=== PATIENT | female | born 1935 | race Asian ===

== ENCOUNTER 2016-12-28 07:30 | Inpatient (IN) | payer MEDICARE, OTHER ==
[~2016-12-28] VITALS: Ht 149.9 cm; Wt 59.1 kg
[2017-03-15 14:30] LABS: BASOPHILS # (AUTO) 0.03 K/uL (0.00-0.20); BASOPHILS % (AUTO) 0.4 % (0.0-2.0); EOSINOPHILS # (AUTO) 0.35 K/uL (0.00-0.70); EOSINOPHILS % (AUTO) 5.53 % (1.0-6.0); HEMATOCRIT 34.8 % (36-46); HEMOGLOBIN 11.7 g/dL (12.0-16.0); LYMPHOCYTES # (AUTO) 1.6 K/uL (1.0-4.8); LYMPHOCYTES % (AUTO) 25.7 % (22.0-44.0); MEAN CORPUSCULAR HEMOGLOBIN 32.3 pg (26.0-34.0); MEAN CORPUSCULAR HGB CONC 33.7 G/dL (31.0-37.0); MEAN CORPUSCULAR VOLUME 96 fL (80-100); MONOCYTES # (AUTO) 0.5 K/uL (0.1-1.0); MONOCYTES % (AUTO) 7.8 % (2.0-9.0); NEUTROPHILS # (AUTO) 3.9 K/uL (1.8-7.7); NEUTROPHILS % (AUTO) 60.6 % (40.0-70.0); PLATELET COUNT (AUTO) 209 K/uL (150-450); RED BLOOD CELL COUNT(AUTO) 3.62 MIL/uL (4.00-5.20); RED CELL DISTRIBUTION WIDTH 13.7 % (11.5-14.5); WHITE BLOOD COUNT (AUTO) 6.4 K/uL (4.5-11.0)
[2017-03-15 14:43] LABS: CALCIUM, TOTAL 10.2 mg/dL (8.8-10.5); CREATININE 1.01 mg/dL (0.60-1.30)
[2017-03-15 14:44] LABS: PROTHROMBIN TIME 10.1 SEC (9.4-11.6)
[2017-03-15 14:46] LABS: BILIRUBIN,TOTAL 0.8 mg/dL (0.1-1.0); TOTAL PROTEIN, SERUM 7.6 g/dL (6.4-8.2)
[2017-03-18] MEDS ORDERED: ACET-784 PO (16:38)
[2017-03-18] MEDS ORDERED: AMLO-511 PO (16:38)
[2017-03-18] MEDS ORDERED: ISOS5TAB5 PO (16:38)
[2017-03-18] MEDS ORDERED: CALC-51 PO (16:38)
[2017-03-18] MEDS ORDERED: SIMV-260 PO (16:38)
[2017-03-18] MEDS ORDERED: METH2.5 PO (16:38)
[2017-03-18] MEDS ORDERED: ASPI81 PO (16:38)
[2017-03-18] MEDS ORDERED: TELM40 PO (16:38)
[2017-03-18] MEDS ORDERED: CARV3 PO (16:38)
[2017-03-18] MEDS ORDERED: VITAD400 PO (16:38)
[2017-03-18] MEDS ORDERED: LORA1TAB3 PO (16:38)
[2017-03-21] MEDS ORDERED: 0.9% SODIUM CHLORIDE 10 ML VIAL IVP ONE (05:14)
[2017-03-21] MEDS ORDERED: ONDANSETRON HCL 4 MG/2 ML VIAL IVP ONE (05:14)
[2017-03-21] MEDS ORDERED: MORPHINE SULFATE/PF 0.5 MG/ML 10 ML AMP IVP ONE (05:14)
[2017-03-21] MEDS ORDERED: PHENYLEPHRINE HCL 10 MG/ML VIAL IVP ONE (05:14)
[2017-03-21] MEDS ORDERED: KETAMINE HCL 50 MG/ML 10 ML VIAL IVP ONE (05:14)
[2017-03-21] MEDS ORDERED: MIDAZOLAM HCL 2 MG/2 ML VIAL IVP ONE (05:14)
[2017-03-21] MEDS ORDERED: EPHEDrine SULFATE 50 MG/ML VIAL IM ONE (05:14)
[2017-03-21] MEDS ORDERED: PROPOFOL 1% 20 ML VIAL IVP ONE (05:14)
[2017-03-21] MEDS ORDERED: FentaNYL CITRATE-PF 100 MCG/2 ML VIAL IVP ONE (05:14)
[2017-03-21] MEDS ORDERED: LIDOCAINE HCL/PF 2% 5 ML VIAL IM ONE (05:14)
[2017-03-21] MEDS ORDERED: CeFAZolin 2 GM/DEXTROSE 50 ML IV ONE ×2 (06:00→06:13)
[2017-03-21] MEDS ORDERED: RINGERS SOLUTION,LACTATED 1,000 ML IV ONE ×3 (06:11→07:15)
[2017-03-21] MEDS ORDERED: BUPIVACAINE HCL/PF 0.25% 30 ML VIAL ONE (06:24)
[2017-03-21] MEDS ORDERED: BUPIVACAINE HCL/PF 0.5% 30 ML VIAL ONE ×2 (06:53→07:11)
[2017-03-21] MEDS ORDERED: SODIUM CHLORIDE 0.9% 0 ML IV ONE (06:53)
[2017-03-21] MEDS ORDERED: SODIUM CHLORIDE 0.9% 30 ML ONE (06:53)
[2017-03-21] MEDS ORDERED: VANCOMYCIN HCL 1 GM/VIAL ONE (06:54)
[2017-03-21] MEDS ORDERED: SODIUM CL IRRIG SOLN BAG 3,000 ML IRRIG ONE (06:54)
[2017-03-21] MEDS ORDERED: TRANEXAMIC ACID 1,000 MG in DEXTROSE 5%-WATER 50 ML IV ONE (07:15)
[2017-03-21] MEDS ORDERED: BUPIVACAINE LIPOSOME/PF 1.3%-13.3MG/ML SUSPENSION 20 ML VIAL INJ ONE (08:00)
[2017-03-21] MEDS: ACETAMINOPHEN 1000 MG/ISO-OSM 100 ML IV ONE ×2 (08:00→10:26)
[2017-03-21] MEDS ORDERED: MEPERIDINE-PF 25 MG/ML SYRINGE IVP PRN (09:30)
[2017-03-21] MEDS ORDERED: FentaNYL CITRATE-PF 100 MCG/2 ML VIAL IVP PRN (09:30)
[2017-03-21] MEDS ORDERED: HYDROmorphone 2 MG/ML SYRINGE IVP PRN (09:30)
[2017-03-21] MEDS ORDERED: ACETAMINOPHEN 1000 MG/ISO-OSM 100 ML IV ONE (10:23)
[2017-03-21] MEDS: ACETAMINOPHEN 1000 MG/ISO-OSM 100 ML IV SCH ×3 (10:26→22:07)
[2017-03-21] MEDS: CeFAZolin 1 GM/DEXTROSE 50 ML IV SCH ×2 (10:32→17:48)
[2017-03-21] MEDS ORDERED: CeFAZolin 1 GM/DEXTROSE 50 ML IV ONE (10:32)
[2017-03-21 11:30] VITALS: BP 137/69
[2017-03-21] MEDS ORDERED: ONDANSETRON HCL 4 MG/2 ML VIAL IVP PRN (11:45)
[2017-03-21] MEDS ORDERED: ZOLPIDEM TARTRATE 5 MG TABLET PO PRN (11:45)
[2017-03-21] MEDS ORDERED: ISOS10TA16 PO (12:05)
[2017-03-21 15:30] VITALS: BP 142/68
[2017-03-21 19:43] VITALS: BP 103/54
[2017-03-21] MEDS: OXYGEN THERAPY IH SCH (20:00)
[2017-03-21] MEDS: CARVEDILOL 3.125 MG TABLET PO SCH (21:00)
[2017-03-21 23:41] VITALS: BP 106/52
[2017-03-22] MEDS: CeFAZolin 1 GM/DEXTROSE 50 ML IV SCH (01:46)
[2017-03-22] MEDS: ACETAMINOPHEN 1000 MG/ISO-OSM 100 ML IV SCH (03:50)
[2017-03-22 03:55] VITALS: BP 120/59
[2017-03-22] MEDS: OXYGEN THERAPY IH SCH ×2 (08:00→20:00)
[2017-03-22 08:19] VITALS: BP 142/65
[2017-03-22] MEDS ORDERED: TELMISARTAN 40 MG TABLET PO SCH (09:00)
[2017-03-22] MEDS: CHOLECALCIFEROL (VIT D3) 400 UNITS TABLET PO SCH (09:06)
[2017-03-22] MEDS: CARVEDILOL 3.125 MG TABLET PO SCH ×2 (09:06→20:56)
[2017-03-22] MEDS: ISOSORBIDE DINITRATE 10 MG TABLET PO SCH ×2 (09:07→20:56)
[2017-03-22] MEDS: ENOXAPARIN SODIUM 30 MG/0.3 ML PF SYRINGE SQ SCH (09:10)
[2017-03-22] MEDS: CYCLOBENZAPRINE HCL 10 MG TABLET PO PRN (11:12)
[2017-03-22 11:26] VITALS: BP 121/56
[2017-03-22] MEDS: HYDROmorphone 2 MG/ML SYRINGE IVP PRN (12:10)
[2017-03-22 16:00] VITALS: BP 150/75
[2017-03-22] MEDS: OxyCODONE HCL/ACETAMINOPHEN 5-325 MG TABLET PO PRN (16:15)
[2017-03-22 19:58] VITALS: BP 146/67
[2017-03-22] MEDS: TELMISARTAN 40 MG TABLET PO SCH (21:00)
[2017-03-22 23:56] VITALS: BP 132/59
[2017-03-23] MEDS: HYDROmorphone 2 MG/ML SYRINGE IVP PRN ×2 (00:30→10:39)
[2017-03-23 04:31] VITALS: BP 126/83
[2017-03-23 06:20] LABS: BASOPHILS # (AUTO) 0.02 K/uL (0.00-0.20); BASOPHILS % (AUTO) 0.2 % (0.0-2.0); EOSINOPHILS # (AUTO) 0.08 K/uL (0.00-0.70); HEMATOCRIT 26.6 % (36-46); HEMOGLOBIN 8.8 g/dL (12.0-16.0); LYMPHOCYTES % (AUTO) 10.8 % (22.0-44.0); MEAN CORPUSCULAR HEMOGLOBIN 32.3 pg (26.0-34.0); MEAN CORPUSCULAR HGB CONC 33.3 G/dL (31.0-37.0); MEAN CORPUSCULAR VOLUME 97 fL (80-100); MONOCYTES # (AUTO) 1.3 K/uL (0.1-1.0); MONOCYTES % (AUTO) 13.9 % (2.0-9.0); NEUTROPHILS # (AUTO) 7.2 K/uL (1.8-7.7); NEUTROPHILS % (AUTO) 74.4 % (40.0-70.0); PLATELET COUNT (AUTO) 134 K/uL (150-450); RED BLOOD CELL COUNT(AUTO) 2.74 MIL/uL (4.00-5.20); RED CELL DISTRIBUTION WIDTH 14.1 % (11.5-14.5); WHITE BLOOD COUNT (AUTO) 9.7 K/uL (4.5-11.0)
[2017-03-23 06:35] LABS: ALBUMIN 2.7 g/dL (3.4-5.0); BILIRUBIN,TOTAL 0.8 mg/dL (0.1-1.0); CALCIUM, TOTAL 8.8 mg/dL (8.8-10.5); CREATININE 1.07 mg/dL (0.60-1.30); POTASSIUM 3.9 mmol/L (3.5-5.1); TOTAL PROTEIN, SERUM 6.1 g/dL (6.4-8.2)
[2017-03-23 07:30] VITALS: BP 123/62
[2017-03-23] MEDS: ISOSORBIDE DINITRATE 10 MG TABLET PO SCH ×2 (08:28→20:58)
[2017-03-23] MEDS: CHOLECALCIFEROL (VIT D3) 400 UNITS TABLET PO SCH (08:28)
[2017-03-23] MEDS: ENOXAPARIN SODIUM 30 MG/0.3 ML PF SYRINGE SQ SCH (08:28)
[2017-03-23] MEDS: CARVEDILOL 3.125 MG TABLET PO SCH ×2 (08:28→20:57)
[2017-03-23] MEDS: TELMISARTAN 40 MG TABLET PO SCH ×2 (08:29→20:57)
[2017-03-23] MEDS ORDERED: EPOETIN ALFA 10,000 UNITS/ML VIAL SQ ONE (11:30)
[2017-03-23 12:00] VITALS: BP 120/47
[2017-03-23] MEDS: OxyCODONE HCL/ACETAMINOPHEN 5-325 MG TABLET PO PRN ×2 (14:15→18:20)
[2017-03-23 15:30] VITALS: BP 106/52
[2017-03-23] MEDS: OXYGEN THERAPY IH SCH (20:00)
[2017-03-23 20:52] VITALS: BP 100/42
[2017-03-23] MEDS: CYCLOBENZAPRINE HCL 10 MG TABLET PO PRN (20:58)
[2017-03-24 00:08] VITALS: BP 100/44
[2017-03-24] MEDS: OxyCODONE HCL/ACETAMINOPHEN 5-325 MG TABLET PO PRN ×2 (01:01→08:26)
[2017-03-24 04:00] VITALS: BP 92/42
[2017-03-24 07:40] VITALS: BP 121/58
[2017-03-24] MEDS: OXYGEN THERAPY IH SCH (08:00)
[2017-03-24] MEDS: ENOXAPARIN SODIUM 30 MG/0.3 ML PF SYRINGE SQ SCH (08:25)
[2017-03-24] MEDS: CARVEDILOL 3.125 MG TABLET PO SCH (08:26)
[2017-03-24] MEDS: CHOLECALCIFEROL (VIT D3) 400 UNITS TABLET PO SCH (08:26)
[2017-03-24] MEDS: ISOSORBIDE DINITRATE 10 MG TABLET PO SCH (08:26)
[2017-03-24] MEDS: TELMISARTAN 40 MG TABLET PO SCH (08:26)
[2017-03-24] MEDS ORDERED: METHOTREXATE SODIUM 2.5 MG TABLET PO SCH ×2 (09:00)
[2017-03-24] MEDS ORDERED: CALCIUM OYSTER SHELL 500 MG TABLET PO SCH (09:00)
[2017-03-24] MEDS: CYCLOBENZAPRINE HCL 10 MG TABLET PO PRN (10:25)
[2017-03-28] MEDS ORDERED: SIMVASTATIN 20 MG TABLET PO SCH (21:00)
== END 2017-03-24 11:30 | DRG 470 ==
LOC: 4E 03-21 05:41
PROVIDERS: ADMIT Orthopaedic Surgery; ATTEND Orthopaedic Surgery
PROC: 0SRC0J9 Replacement of Right Knee Joint with Synthetic Substitute, Cemented, Open Approach (ICD-10-PCS; principal; 2017-03-21 07:30)
DX: M17.11 Unilateral primary osteoarthritis, right knee (principal); D62 Acute posthemorrhagic anemia; M06.9 Rheumatoid arthritis, unspecified; M81.0 Age-related osteoporosis without current pathological fracture; I10 Essential (primary) hypertension; R79.89 Other specified abnormal findings of blood chemistry; E78.5 Hyperlipidemia, unspecified; D64.9 Anemia, unspecified; D69.6 Thrombocytopenia, unspecified; Z98.42 Cataract extraction status, left eye; Z98.41 Cataract extraction status, right eye; Z88.6 Allergy status to analgesic agent; Z82.49 Family history of ischemic heart disease and other diseases of the circulatory system; Z91.02 Food additives allergy status; Z91.013 Allergy to seafood
CPT/HCPCS: 87081; 88300; 97110; 97161; 97166; 97530; 97535; C9290; G0238; J0131; J0690; J0885; J1170; J1650; J2250; J2274; J2370; J2405; J2704; J3010; J3370; J3490; J7030; J7060; J7120; J8610

== ENCOUNTER → 2017-05-09 | Outpatient (CLI) | payer MEDICARE, OTHER ==
[~2017-05-09] MED LIST: ACET-784 PO; AMLO-511 PO; ASPI81 PO; CALC-51 PO; CARV3 PO; ISOS10TA16 PO; LORA1TAB3 PO; METH2.5 PO; SIMV-260 PO; TELM40 PO; VITAD400 PO
== END | disposition home or self-care (01) ==
LOC: RADPV 10:13
PROVIDERS: ATTEND Orthopaedic Surgery
DX: Z47.1 Aftercare following joint replacement surgery (principal); Z96.651 Presence of right artificial knee joint; Z98.890 Other specified postprocedural states

== ENCOUNTER → 2017-06-01 | Outpatient (CLI) | payer MEDICARE, OTHER ==
[2017-06-01 16:24] LABS: CALCIUM, TOTAL 9.5 mg/dL (8.8-10.5); CREATININE 1.08 mg/dL (0.60-1.30); POTASSIUM 4.5 mmol/L (3.5-5.1); URIC ACID 6.2 mg/dL (2.6-7.2)
[2017-06-02 14:59] LABS: APPEARANCE,URINE CLEAR (CLEAR); GLUCOSE, URINE (UA) NEGATIVE (NEGATIVE); KETONES,URINE NEGATIVE (NEGATIVE); LEUKOCYTE ESTERASE ,URINE NEGATIVE (NEGATIVE); OCCULT BLOOD,URINE NEGATIVE (NEGATIVE); PROTEIN,URINE NEGATIVE (NEGATIVE)
[2017-06-02 15:05] LABS: ADD UA MICROSCOPIC NO
== END | disposition home or self-care (01) ==
LOC: LABPV 12:43
PROVIDERS: ATTEND Hospitalist
DX: I12.9 Hypertensive chronic kidney disease with stage 1 through stage 4 chronic kidney disease, or unspecified chronic kidney disease (principal); N18.2 Chronic kidney disease, stage 2 (mild); E78.5 Hyperlipidemia, unspecified; M81.0 Age-related osteoporosis without current pathological fracture
CPT/HCPCS: 82306; 82570; 84156; 84550

== ENCOUNTER → 2017-06-22 | Outpatient (CLI) | payer MEDICARE, OTHER | END | disposition home or self-care (01) | LOC: RADPV 12:59 | PROVIDERS: ATTEND Hospitalist | DX: M25.561 Pain in right knee (principal); N18.2 Chronic kidney disease, stage 2 (mild); Z96.651 Presence of right artificial knee joint | CPT/HCPCS: 93971 ==

== ENCOUNTER → 2017-07-25 | Outpatient (CLI) | payer MEDICARE, OTHER | END | disposition home or self-care (01) | LOC: RADPV 09:52 | PROVIDERS: ATTEND Orthopaedic Surgery | DX: M25.561 Pain in right knee (principal); I70.0 Atherosclerosis of aorta; Z96.651 Presence of right artificial knee joint ==

== ENCOUNTER → 2017-08-29 | Outpatient (CLI) | payer MEDICARE, OTHER ==
[~2017-08-29] MED LIST changes: +CALC-1038 PO; -CALC-51 PO
== END | disposition home or self-care (01) ==
LOC: RADMN 11:45
PROVIDERS: ATTEND Orthopaedic Surgery
DX: Z47.1 Aftercare following joint replacement surgery (principal); M25.561 Pain in right knee; M25.461 Effusion, right knee; Z96.651 Presence of right artificial knee joint
CPT/HCPCS: 73700

== ENCOUNTER → 2018-03-15 | Outpatient (CLI) | payer MEDICARE, OTHER ==
[2018-03-15 12:28] LABS: BASOPHILS % (AUTO) 0.8 % (0.0-2.0); EOSINOPHILS % (AUTO) 0 % (1.0-6.0); HEMATOCRIT 36.3 % (36-46); LYMPHOCYTES # (AUTO) 1.5 K/uL (1.0-4.8); LYMPHOCYTES % (AUTO) 25.4 % (22.0-44.0); MEAN CORPUSCULAR HEMOGLOBIN 32.7 pg (26.0-34.0); MEAN CORPUSCULAR HGB CONC 33.1 G/dL (31.0-37.0); MEAN CORPUSCULAR VOLUME 99 fL (80-100); MONOCYTES # (AUTO) 0.6 K/uL (0.1-1.0); MONOCYTES % (AUTO) 10.1 % (2.0-9.0); NEUTROPHILS # (AUTO) 3.6 K/uL (1.8-7.7); NEUTROPHILS % (AUTO) 63.7 % (40.0-70.0); PLATELET COUNT (AUTO) 251 K/uL (150-450); RED BLOOD CELL COUNT(AUTO) 3.68 MIL/uL (4.00-5.20); RED CELL DISTRIBUTION WIDTH 15.1 % (11.5-14.5)
[2018-03-15 12:30] LABS: ALBUMIN 4.1 g/dL (3.4-5.0); CALCIUM, TOTAL 9.6 mg/dL (8.8-10.5); CREATININE 1.22 mg/dL (0.60-1.30); PHOSPHORUS 2.9 mg/dL (2.5-4.9); POTASSIUM 4.3 mmol/L (3.5-5.1)
[2018-03-15 13:21] LABS: CREATININE,URINE RANDOM 98.3 mg/dL (30.0-125.0); PROTEIN,URINE RANDOM 17 mg/dL (0-11.9)
[2018-03-15 13:39] LABS: APPEARANCE,URINE CLEAR (CLEAR); BILIRUBIN,URINE NEGATIVE (NEGATIVE); GLUCOSE, URINE (UA) NEGATIVE (NEGATIVE); KETONES,URINE NEGATIVE (NEGATIVE); LEUKOCYTE ESTERASE ,URINE NEGATIVE (NEGATIVE); NITRATE,URINE NEGATIVE (NEGATIVE); OCCULT BLOOD,URINE NEGATIVE (NEGATIVE); PH,URINE 6.5 (5.0-8.0); PROTEIN,URINE NEGATIVE (NEGATIVE); UROBILINOGEN,URINE 0.2 mg/dL (<=1.0)
== END | disposition home or self-care (01) ==
LOC: LABPV 10:26
PROVIDERS: ATTEND Hospitalist
DX: I12.9 Hypertensive chronic kidney disease with stage 1 through stage 4 chronic kidney disease, or unspecified chronic kidney disease (principal); N18.2 Chronic kidney disease, stage 2 (mild); E78.5 Hyperlipidemia, unspecified; M81.0 Age-related osteoporosis without current pathological fracture
CPT/HCPCS: 82306; 82570; 84156

== ENCOUNTER → 2018-05-30 | Outpatient (CLI) | payer MEDICARE, OTHER ==
[2018-05-30 12:10] LABS: ALBUMIN 4.4 g/dL (3.4-5.0); CALCIUM, TOTAL 9.6 mg/dL (8.8-10.5); CREATININE 1.57 mg/dL (0.60-1.30); PHOSPHORUS 3.5 mg/dL (2.5-4.9); POTASSIUM 3.9 mmol/L (3.5-5.1)
[2018-05-30 12:14] LABS: APPEARANCE,URINE CLEAR (CLEAR); BILIRUBIN,URINE NEGATIVE (NEGATIVE); GLUCOSE, URINE (UA) NEGATIVE (NEGATIVE); KETONES,URINE NEGATIVE (NEGATIVE); LEUKOCYTE ESTERASE ,URINE NEGATIVE (NEGATIVE); NITRATE,URINE NEGATIVE (NEGATIVE); OCCULT BLOOD,URINE NEGATIVE (NEGATIVE); PROTEIN,URINE NEGATIVE (NEGATIVE); UROBILINOGEN,URINE 0.2 mg/dL (<=1.0)
[2018-05-30 12:19] LABS: CREATININE,URINE RANDOM 116.2 mg/dL (30.0-125.0); PROTEIN,URINE RANDOM 17 mg/dL (0-11.9)
== END | disposition home or self-care (01) ==
LOC: LABPV 09:58
PROVIDERS: ATTEND Hospitalist
DX: I12.9 Hypertensive chronic kidney disease with stage 1 through stage 4 chronic kidney disease, or unspecified chronic kidney disease (principal); N18.2 Chronic kidney disease, stage 2 (mild); E78.5 Hyperlipidemia, unspecified
CPT/HCPCS: 82570; 84156

== ENCOUNTER → 2018-07-05 | Outpatient (CLI) | payer MEDICARE, OTHER ==
[2018-07-05 15:02] LABS: ALBUMIN 4.4 g/dL (3.4-5.0); CALCIUM, TOTAL 9.9 mg/dL (8.8-10.5); CREATININE 1.35 mg/dL (0.60-1.30); PHOSPHORUS 3.2 mg/dL (2.5-4.9); POTASSIUM 3.9 mmol/L (3.5-5.1); URIC ACID 5.8 mg/dL (2.6-7.2)
[2018-07-05 15:08] LABS: BASOPHILS % (AUTO) 0.7 % (0.0-2.0); EOSINOPHILS % (AUTO) 2.5 % (1.0-6.0); HEMATOCRIT 34.5 % (36-46); HEMOGLOBIN 11.5 g/dL (12.0-16.0); LYMPHOCYTES # (AUTO) 1.6 K/uL (1.0-4.8); LYMPHOCYTES % (AUTO) 20.1 % (22.0-44.0); MEAN CORPUSCULAR HGB CONC 33.4 G/dL (31.0-37.0); MEAN CORPUSCULAR VOLUME 102 fL (80-100); MONOCYTES # (AUTO) 0.5 K/uL (0.1-1.0); MONOCYTES % (AUTO) 6.6 % (2.0-9.0); NEUTROPHILS # (AUTO) 5.5 K/uL (1.8-7.7); NEUTROPHILS % (AUTO) 70.1 % (40.0-70.0); PLATELET COUNT (AUTO) 245 K/uL (150-450); RED BLOOD CELL COUNT(AUTO) 3.39 MIL/uL (4.00-5.20)
[2018-07-05 15:09] LABS: HEMOGLOBIN A1C 5.9 % (4.5-6.2)
[2018-07-05 15:17] LABS: PROTEIN,URINE RANDOM 20 mg/dL (0-11.9)
[2018-07-05 15:18] LABS: BILIRUBIN,URINE NEGATIVE (NEGATIVE); GLUCOSE, URINE (UA) NEGATIVE (NEGATIVE); KETONES,URINE NEGATIVE (NEGATIVE); LEUKOCYTE ESTERASE ,URINE NEGATIVE (NEGATIVE); NITRATE,URINE NEGATIVE (NEGATIVE); OCCULT BLOOD,URINE NEGATIVE (NEGATIVE); PROTEIN,URINE NEGATIVE (NEGATIVE); UROBILINOGEN,URINE 0.2 mg/dL (<=1.0)
[2018-07-05 15:22] LABS: APPEARANCE,URINE HAZY (CLEAR)
[2018-07-06 08:22] LABS: VITAMIN B12 LEVEL 374 pg/mL (211-911)
[2018-07-06 08:49] LABS: FOLATE SERUM > 24.0 ng/mL (5.4-)
[2018-07-07 06:06] LABS: ALPHA-1 (IFE & PEP) 0.3 g/dL (0.0-0.4); IGM (IMMUNOFIXATION) 73 mg/dL (26-217)
== END | disposition home or self-care (01) ==
LOC: LABPV 11:28
PROVIDERS: ATTEND Hospitalist
DX: Z01.812 Encounter for preprocedural laboratory examination (principal); I12.9 Hypertensive chronic kidney disease with stage 1 through stage 4 chronic kidney disease, or unspecified chronic kidney disease; N18.2 Chronic kidney disease, stage 2 (mild); N17.9 Acute kidney failure, unspecified; E78.5 Hyperlipidemia, unspecified; M25.561 Pain in right knee; R60.0 Localized edema; Z79.899 Other long term (current) drug therapy; Z88.8 Allergy status to other drugs, medicaments and biological substances; Z91.048 Other nonmedicinal substance allergy status
CPT/HCPCS: 82570; 82607; 82746; 82784; 83036; 84155; 84156; 84165; 84550; 86334

== ENCOUNTER → 2019-01-10 | Outpatient (CLI) | payer MEDICARE, OTHER ==
[2019-01-10 12:42] LABS: EOSINOPHILS % (AUTO) 3.9 % (1.0-6.0); HEMATOCRIT 36.8 % (36-46); HEMOGLOBIN 11.9 g/dL (12.0-16.0); LYMPHOCYTES # (AUTO) 1.5 K/uL (1.0-4.8); LYMPHOCYTES % (AUTO) 26.3 % (22.0-44.0); MEAN CORPUSCULAR HEMOGLOBIN 32.3 pg (26.0-34.0); MEAN CORPUSCULAR HGB CONC 32.3 G/dL (31.0-37.0); MEAN CORPUSCULAR VOLUME 100 fL (80-100); MONOCYTES # (AUTO) 0.7 K/uL (0.1-1.0); MONOCYTES % (AUTO) 12.3 % (2.0-9.0); NEUTROPHILS # (AUTO) 3.2 K/uL (1.8-7.7); NEUTROPHILS % (AUTO) 56.5 % (40.0-70.0); PLATELET COUNT (AUTO) 236 K/uL (150-450); RED BLOOD CELL COUNT(AUTO) 3.68 MIL/uL (4.00-5.20); RED CELL DISTRIBUTION WIDTH 14.4 % (11.5-14.5)
[2019-01-10 12:51] LABS: CALCIUM, TOTAL 9.4 mg/dL (8.8-10.5); CREATININE 1.2 mg/dL (0.60-1.30); PHOSPHORUS 2.6 mg/dL (2.5-4.9); POTASSIUM 3.6 mmol/L (3.5-5.1)
[2019-01-10 13:07] LABS: APPEARANCE,URINE CLEAR (CLEAR); BILIRUBIN,URINE NEGATIVE (NEGATIVE); GLUCOSE, URINE (UA) NEGATIVE (NEGATIVE); KETONES,URINE NEGATIVE (NEGATIVE); LEUKOCYTE ESTERASE ,URINE TRACE (NEGATIVE); NITRATE,URINE NEGATIVE (NEGATIVE); OCCULT BLOOD,URINE NEGATIVE (NEGATIVE); PH,URINE 5.5 (5.0-8.0); PROTEIN,URINE NEGATIVE (NEGATIVE); UROBILINOGEN,URINE 0.2 mg/dL (<=1.0)
[2019-01-10 13:16] LABS: CREATININE,URINE RANDOM 212.8 mg/dL (30.0-125.0); PROTEIN,URINE RANDOM 30 mg/dL (0-11.9)
[2019-01-10 13:29] LABS: BACTERIA,URINE None Seen /HPF (None Seen); RBC,URINE 0-2 /HPF (0-2); SQUAMOUS EPITHELIAL CELL,UR Few /LPF (None Seen); WBC,URINE 0-2 /HPF (0-5)
== END | disposition home or self-care (01) ==
LOC: LABPV 10:50
PROVIDERS: ATTEND Hospitalist
DX: I12.9 Hypertensive chronic kidney disease with stage 1 through stage 4 chronic kidney disease, or unspecified chronic kidney disease (principal); N18.2 Chronic kidney disease, stage 2 (mild); E78.5 Hyperlipidemia, unspecified; R60.0 Localized edema
CPT/HCPCS: 82570; 82607; 84156

== ENCOUNTER → 2019-09-11 | Outpatient (CLI) | payer MEDICARE, OTHER ==
[~2019-09-11] MED LIST changes: -AMLO-511 PO; +AMLO5TAB9 PO; +LORA-1000 PO; -LORA1TAB3 PO
[2019-09-11 13:02] LABS: BASOPHILS % (AUTO) 1.1 % (0.0-2.0); EOSINOPHILS % (AUTO) 3.9 % (1.0-6.0); HEMOGLOBIN 12.4 g/dL (12.0-16.0); LYMPHOCYTES # (AUTO) 1.6 K/uL (1.0-4.8); LYMPHOCYTES % (AUTO) 24.1 % (22.0-44.0); MEAN CORPUSCULAR HEMOGLOBIN 32.2 pg (26.0-34.0); MEAN CORPUSCULAR HGB CONC 32.6 G/dL (31.0-37.0); MEAN CORPUSCULAR VOLUME 99 fL (80-100); MONOCYTES # (AUTO) 0.4 K/uL (0.1-1.0); MONOCYTES % (AUTO) 5.9 % (2.0-9.0); NEUTROPHILS # (AUTO) 4.3 K/uL (1.8-7.7); PLATELET COUNT (AUTO) 281 K/uL (150-450); RED BLOOD CELL COUNT(AUTO) 3.84 MIL/uL (4.00-5.20); RED CELL DISTRIBUTION WIDTH 14.9 % (11.5-14.5)
[2019-09-11 14:07] LABS: ALBUMIN 4.2 g/dL (3.4-5.0); CALCIUM, TOTAL 9.7 mg/dL (8.8-10.5); CREATININE 1.39 mg/dL (0.60-1.30); PHOSPHORUS 3.2 mg/dL (2.5-4.9)
[2019-09-11 14:17] LABS: URIC ACID 6.9 mg/dL (2.6-7.2)
[2019-09-12 11:51] LABS: APPEARANCE,URINE CLEAR (CLEAR); BILIRUBIN,URINE NEGATIVE (NEGATIVE); GLUCOSE, URINE (UA) NEGATIVE (NEGATIVE); KETONES,URINE NEGATIVE (NEGATIVE); LEUKOCYTE ESTERASE ,URINE NEGATIVE (NEGATIVE); NITRATE,URINE NEGATIVE (NEGATIVE); OCCULT BLOOD,URINE NEGATIVE (NEGATIVE); PH,URINE 5.5 (5.0-8.0); PROTEIN,URINE NEGATIVE (NEGATIVE); UROBILINOGEN,URINE 0.2 mg/dL (<=1.0)
[2019-09-12 11:55] LABS: CREATININE,URINE RANDOM 68.1 mg/dL (30.0-125.0); PROTEIN,URINE RANDOM 7 mg/dL (0-11.9)
== END | disposition home or self-care (01) ==
LOC: LABPV 09:18
PROVIDERS: ATTEND Hospitalist
DX: E53.8 Deficiency of other specified B group vitamins (principal); N18.2 Chronic kidney disease, stage 2 (mild); E79.0 Hyperuricemia without signs of inflammatory arthritis and tophaceous disease; M06.9 Rheumatoid arthritis, unspecified; R73.09 Other abnormal glucose
CPT/HCPCS: 82043; 82570; 83036; 84155; 84156; 84165; 84550

== ENCOUNTER → 2020-01-16 | Outpatient (CLI) | payer MEDICARE, OTHER ==
[~2020-01-16] MED LIST changes: +ASPI-728 PO; -ASPI81 PO; +CHOL400T56 PO; -VITAD400 PO
[2020-01-16 11:54] LABS: EOSINOPHILS % (AUTO) 4.7 % (1.0-6.0); HEMATOCRIT 35.5 % (36-46); HEMOGLOBIN 11.4 g/dL (12.0-16.0); LYMPHOCYTES # (AUTO) 1.9 K/uL (1.0-4.8); LYMPHOCYTES % (AUTO) 22.9 % (22.0-44.0); MEAN CORPUSCULAR HEMOGLOBIN 32.4 pg (26.0-34.0); MEAN CORPUSCULAR HGB CONC 32.3 G/dL (31.0-37.0); MEAN CORPUSCULAR VOLUME 100 fL (80-100); MONOCYTES # (AUTO) 0.9 K/uL (0.1-1.0); MONOCYTES % (AUTO) 10.6 % (2.0-9.0); NEUTROPHILS % (AUTO) 60.8 % (40.0-70.0); PLATELET COUNT (AUTO) 301 K/uL (150-450); RED BLOOD CELL COUNT(AUTO) 3.53 MIL/uL (4.00-5.20)
[2020-01-16 13:24] LABS: ALBUMIN 3.7 g/dL (3.4-5.0); CALCIUM, TOTAL 10.6 mg/dL (8.8-10.5); CREATININE 1.29 mg/dL (0.60-1.30); PHOSPHORUS 3.4 mg/dL (2.5-4.9); POTASSIUM 3.6 mmol/L (3.5-5.1)
== END | disposition home or self-care (01) ==
LOC: LABPV 10:11
PROVIDERS: ATTEND Hospitalist
DX: E11.22 Type 2 diabetes mellitus with diabetic chronic kidney disease (principal); N18.3 Chronic kidney disease, stage 3 (moderate)
CPT/HCPCS: 83036; 83970

== ENCOUNTER → 2020-02-14 | Outpatient (CLI) | payer MEDICARE, OTHER ==
[2020-02-14 09:35] LABS: ALBUMIN 4.1 g/dL (3.4-5.0); CALCIUM, TOTAL 10.1 mg/dL (8.8-10.5); CHOL/HDL RATIO 2.8 (3.9-5.7); CREATININE 1.52 mg/dL (0.60-1.30); FREE T4 (FREE THYROXINE) 1.04 ng/dL (0.76-1.46); PHOSPHORUS 3.4 mg/dL (2.5-4.9); POTASSIUM 3.7 mmol/L (3.5-5.1); THYROID STIMULATING HORMONE 2.89 uIU/mL (0.36-3.74)
[2020-02-14 09:54] LABS: URIC ACID 12.2 mg/dL (2.6-7.2)
== END | disposition home or self-care (01) ==
LOC: LABPV 07:38
PROVIDERS: ATTEND Hospitalist
DX: I12.9 Hypertensive chronic kidney disease with stage 1 through stage 4 chronic kidney disease, or unspecified chronic kidney disease (principal); N18.3 Chronic kidney disease, stage 3 (moderate); E79.0 Hyperuricemia without signs of inflammatory arthritis and tophaceous disease
CPT/HCPCS: 84439; 84443; 84550

== ENCOUNTER → 2020-06-18 | Outpatient (CLI) | payer MEDICARE, OTHER ==
[~2020-06-18] MED LIST changes: +AMLO-257 PO; -AMLO5TAB9 PO
[2020-06-18 11:30] LABS: APPEARANCE,URINE CLEAR (CLEAR); BILIRUBIN,URINE NEGATIVE (NEGATIVE); GLUCOSE, URINE (UA) NEGATIVE (NEGATIVE); KETONES,URINE NEGATIVE (NEGATIVE); LEUKOCYTE ESTERASE ,URINE NEGATIVE (NEGATIVE); NITRATE,URINE NEGATIVE (NEGATIVE); OCCULT BLOOD,URINE NEGATIVE (NEGATIVE); PH,URINE 5.5 (5.0-8.0); PROTEIN,URINE TRACE (NEGATIVE); UROBILINOGEN,URINE 0.2 mg/dL (<=1.0)
[2020-06-18 11:32] LABS: BASOPHILS % (AUTO) 0.9 % (0.0-2.0); EOSINOPHILS % (AUTO) 3.9 % (1.0-6.0); HEMATOCRIT 39.1 % (36-46); HEMOGLOBIN 12.8 g/dL (12.0-16.0); LYMPHOCYTES % (AUTO) 28.4 % (22.0-44.0); MEAN CORPUSCULAR HEMOGLOBIN 31.6 pg (26.0-34.0); MEAN CORPUSCULAR HGB CONC 32.7 G/dL (31.0-37.0); MEAN CORPUSCULAR VOLUME 97 fL (80-100); MONOCYTES # (AUTO) 0.6 K/uL (0.1-1.0); MONOCYTES % (AUTO) 8.2 % (2.0-9.0); NEUTROPHILS # (AUTO) 4.2 K/uL (1.8-7.7); NEUTROPHILS % (AUTO) 58.6 % (40.0-70.0); PLATELET COUNT (AUTO) 266 K/uL (150-450); RED BLOOD CELL COUNT(AUTO) 4.05 MIL/uL (4.00-5.20); RED CELL DISTRIBUTION WIDTH 14.3 % (11.5-14.5)
[2020-06-18 11:47] LABS: ALBUMIN 4.2 g/dL (3.4-5.0); CALCIUM, TOTAL 9.6 mg/dL (8.8-10.5); CREATININE 1.44 mg/dL (0.60-1.30); PHOSPHORUS 3.7 mg/dL (2.5-4.9); POTASSIUM 4.2 mmol/L (3.5-5.1)
[2020-06-18 13:44] LABS: URIC ACID 8.1 mg/dL (2.6-7.2)
== END | disposition home or self-care (01) ==
LOC: LABPV 09:55
PROVIDERS: ATTEND Hospitalist
DX: N18.3 Chronic kidney disease, stage 3 (moderate) (principal)
CPT/HCPCS: 82306; 84550

== ENCOUNTER → 2020-08-29 | Outpatient (CLI) | payer MEDICARE, OTHER ==
[2020-08-29 12:31] LABS: BASOPHILS % (AUTO) 1.4 % (0.0-2.0); EOSINOPHILS % (AUTO) 4.2 % (1.0-6.0); LYMPHOCYTES % (AUTO) 30.6 % (22.0-44.0); MEAN CORPUSCULAR HEMOGLOBIN 31.2 pg (26.0-34.0); MEAN CORPUSCULAR HGB CONC 32.4 G/dL (31.0-37.0); MEAN CORPUSCULAR VOLUME 96 fL (80-100); MONOCYTES # (AUTO) 0.4 K/uL (0.1-1.0); MONOCYTES % (AUTO) 6.7 % (2.0-9.0); NEUTROPHILS # (AUTO) 3.7 K/uL (1.8-7.7); NEUTROPHILS % (AUTO) 57.1 % (40.0-70.0); PLATELET COUNT (AUTO) 252 K/uL (150-450); RED BLOOD CELL COUNT(AUTO) 4.16 MIL/uL (4.00-5.20); RED CELL DISTRIBUTION WIDTH 14.2 % (11.5-14.5)
[2020-08-29 12:42] LABS: ALBUMIN 4.2 g/dL (3.4-5.0); CALCIUM, TOTAL 9.5 mg/dL (8.8-10.5); CREATININE 1.48 mg/dL (0.60-1.30); PHOSPHORUS 3.3 mg/dL (2.5-4.9); POTASSIUM 3.8 mmol/L (3.5-5.1); URIC ACID 9.6 mg/dL (2.6-7.2)
[2020-08-29 12:49] LABS: APPEARANCE,URINE CLEAR (CLEAR); BILIRUBIN,URINE NEGATIVE (NEGATIVE); GLUCOSE, URINE (UA) NEGATIVE (NEGATIVE); KETONES,URINE NEGATIVE (NEGATIVE); LEUKOCYTE ESTERASE ,URINE NEGATIVE (NEGATIVE); NITRATE,URINE NEGATIVE (NEGATIVE); OCCULT BLOOD,URINE NEGATIVE (NEGATIVE); PROTEIN,URINE NEGATIVE (NEGATIVE); UROBILINOGEN,URINE 0.2 mg/dL (<=1.0)
[2020-08-29 12:50] LABS: VITAMIN B12 LEVEL 721 pg/mL (211-911)
[2020-08-29 13:18] LABS: PROTEIN,URINE RANDOM < 6 mg/dL (0-11.9)
[2020-08-29 13:21] LABS: FOLATE SERUM > 24.0 ng/mL (5.4-)
[2020-08-29 13:36] LABS: ERYTHROCYTE SEDIMENTATION RATE 45 MM/HR (0-20)
== END | disposition home or self-care (01) ==
LOC: LABPV 09:52
PROVIDERS: ATTEND Hospitalist
DX: M06.9 Rheumatoid arthritis, unspecified (principal); N18.30 Chronic kidney disease, stage 3 unspecified
CPT/HCPCS: 82043; 82570; 82607; 82746; 83970; 84156; 84550; 85651

== ENCOUNTER 2021-02-16 13:41 | Emergency (ER) | payer MEDICARE, OTHER ==
[~2021-02-16] VITALS: Ht 157.5 cm; Wt 63.6 kg
[~2021-02-16 13:41] MED LIST changes: -AMLO-257 PO; +ASPI-1450 PO; -ASPI-728 PO; +BUME1TAB34 PO; -CALC-1038 PO; -CARV3 PO; -CHOL400T56 PO; +CIPR-278 PO; +CYAN100T45 PO; +FOLI-130 PO; +IBAN150T16 PO; -LORA-1000 PO; +METO25XL PO; +METR500 PO; +PATANOL OU; +TELM20 PO; -TELM40 PO
[2021-02-16 15:55] VITALS: BP 172/61
== END 2021-02-16 15:57 | disposition home or self-care (01) ==
LOC: EMS 13:49
DX: R25.2 Cramp and spasm (principal); I10 Essential (primary) hypertension; E78.00 Pure hypercholesterolemia, unspecified; Z91.018 Allergy to other foods; Z88.6 Allergy status to analgesic agent; Z88.8 Allergy status to other drugs, medicaments and biological substances; Z91.013 Allergy to seafood; Z79.82 Long term (current) use of aspirin
CPT/HCPCS: 99281; Z7502

== ENCOUNTER → 2022-01-27 | Outpatient (CLI) | payer MEDICARE, OTHER ==
[2022-01-27 12:15] LABS: BASOPHILS % (AUTO) 1.2 % (0.0-2.0); EOSINOPHILS % (AUTO) 3.2 % (1.0-6.0); HEMATOCRIT 40.1 % (36-46); HEMOGLOBIN 13.2 g/dL (12.0-16.0); LYMPHOCYTES # (AUTO) 2.3 K/uL (1.0-4.8); LYMPHOCYTES % (AUTO) 25.6 % (22.0-44.0); MEAN CORPUSCULAR HEMOGLOBIN 30.7 pg (26.0-34.0); MEAN CORPUSCULAR HGB CONC 32.9 G/dL (31.0-37.0); MEAN CORPUSCULAR VOLUME 93 fL (80-100); MONOCYTES # (AUTO) 0.7 K/uL (0.1-1.0); MONOCYTES % (AUTO) 7.7 % (2.0-9.0); NEUTROPHILS # (AUTO) 5.7 K/uL (1.8-7.7); NEUTROPHILS % (AUTO) 62.3 % (40.0-70.0); PLATELET COUNT (AUTO) 187 K/uL (150-450); RED BLOOD CELL COUNT(AUTO) 4.29 MIL/uL (4.00-5.20); RED CELL DISTRIBUTION WIDTH 13.7 % (11.5-14.5)
[2022-01-27 12:34] LABS: APPEARANCE,URINE CLEAR (CLEAR); BILIRUBIN,URINE NEGATIVE (NEGATIVE); GLUCOSE, URINE (UA) NEGATIVE (NEGATIVE); KETONES,URINE NEGATIVE (NEGATIVE); LEUKOCYTE ESTERASE ,URINE NEGATIVE (NEGATIVE); NITRATE,URINE NEGATIVE (NEGATIVE); OCCULT BLOOD,URINE TRACE (NEGATIVE); PH,URINE 5.5 (5.0-8.0); PROTEIN,URINE TRACE (NEGATIVE); SPECIFIC GRAVITIY, URINE 1.027 (1.003-1.030); UROBILINOGEN,URINE <=1.0 mg/dL (<=1.0)
[2022-01-27 12:35] LABS: ALBUMIN 3.7 g/dL (3.4-5.0); CALCIUM, TOTAL 9.7 mg/dL (8.8-10.5); CREATININE 1.22 mg/dL (0.60-1.30); PHOSPHORUS 2.8 mg/dL (2.5-4.9); POTASSIUM 3.9 mmol/L (3.5-5.1)
[2022-01-27 12:38] LABS: BACTERIA,URINE None Seen /HPF (None Seen); RBC,URINE 0-2 /HPF (0-2); WBC,URINE None Seen /HPF (0-5)
[2022-01-27 12:47] LABS: VITAMIN B12 LEVEL 1126 pg/mL (211-911); VITAMIN D,TOTAL (25-0H) 29 ng/mL (30-100)
[2022-01-27 13:19] LABS: ERYTHROCYTE SEDIMENTATION RATE 35 MM/HR (0-20)
[2022-01-27 13:24] LABS: FOLATE SERUM > 24.0 ng/mL (5.4-)
== END | disposition home or self-care (01) ==
LOC: LABPV 10:34
PROVIDERS: ATTEND Hospitalist
DX: N18.32 Chronic kidney disease, stage 3b (principal); M05.20 Rheumatoid vasculitis with rheumatoid arthritis of unspecified site; E55.9 Vitamin D deficiency, unspecified
CPT/HCPCS: 80069; 81001; 82306; 82607; 82746; 83970; 85025; 85651

== ENCOUNTER → 2022-07-15 | Outpatient (CLI) | payer MEDICARE, OTHER ==
[2022-07-15 12:01] LABS: BASOPHILS % (AUTO) 1.1 % (0.0-2.0); EOSINOPHILS % (AUTO) 2.9 % (1.0-6.0); HEMATOCRIT 41.3 % (36-46); HEMOGLOBIN 13.8 g/dL (12.0-16.0); LYMPHOCYTES # (AUTO) 1.9 K/uL (1.0-4.8); LYMPHOCYTES % (AUTO) 21.6 % (22.0-44.0); MEAN CORPUSCULAR HEMOGLOBIN 31.7 pg (26.0-34.0); MEAN CORPUSCULAR HGB CONC 33.3 G/dL (31.0-37.0); MEAN CORPUSCULAR VOLUME 95 fL (80-100); MONOCYTES # (AUTO) 0.6 K/uL (0.1-1.0); MONOCYTES % (AUTO) 7.3 % (2.0-9.0); NEUTROPHILS # (AUTO) 5.9 K/uL (1.8-7.7); NEUTROPHILS % (AUTO) 67.1 % (40.0-70.0); PLATELET COUNT (AUTO) 217 K/uL (150-450); RED BLOOD CELL COUNT(AUTO) 4.35 MIL/uL (4.00-5.20); RED CELL DISTRIBUTION WIDTH 13.3 % (11.5-14.5)
[2022-07-15 12:12] LABS: HEMOGLOBIN A1C 6.1 % (3.8-5.6)
[2022-07-15 12:22] LABS: % IRON SATURATION 23.7 % (22-44)
[2022-07-15 12:36] LABS: ALBUMIN 4.1 g/dL (3.4-5.0); CALCIUM, TOTAL 10.1 mg/dL (8.8-10.5); CREATININE 1.27 mg/dL (0.60-1.30); POTASSIUM 4.1 mmol/L (3.5-5.1)
[2022-07-15 12:49] LABS: URIC ACID 7.7 mg/dL (2.6-7.2)
[2022-07-16 13:02] LABS: CREATININE,URINE RANDOM 133.7 mg/dL (30.0-125.0); PROTEIN,URINE RANDOM 32 mg/dL (0-11.9)
[2022-07-16 13:43] LABS: APPEARANCE,URINE CLEAR (CLEAR); BILIRUBIN,URINE NEGATIVE (NEGATIVE); GLUCOSE, URINE (UA) NEGATIVE (NEGATIVE); KETONES,URINE NEGATIVE (NEGATIVE); LEUKOCYTE ESTERASE ,URINE NEGATIVE (NEGATIVE); NITRATE,URINE NEGATIVE (NEGATIVE); OCCULT BLOOD,URINE NEGATIVE (NEGATIVE); PROTEIN,URINE NEGATIVE (NEGATIVE); SPECIFIC GRAVITIY, URINE 1.024 (1.003-1.030); UROBILINOGEN,URINE <=1.0 mg/dL (<=1.0)
== END | disposition home or self-care (01) ==
LOC: LABMN 11:20
PROVIDERS: ATTEND Hospitalist
DX: N18.32 Chronic kidney disease, stage 3b (principal); E79.0 Hyperuricemia without signs of inflammatory arthritis and tophaceous disease; D64.9 Anemia, unspecified; R60.0 Localized edema
CPT/HCPCS: 80069; 81003; 82043; 82570; 82728; 83036; 83540; 83550; 83880; 83970; 84156; 84550; 85025

== ENCOUNTER → 2023-02-01 | Outpatient (CLI) | payer MEDICARE, OTHER ==
[2023-02-01 13:37] LABS: BASOPHILS % (AUTO) 1.2 % (0.0-2.0); EOSINOPHILS % (AUTO) 2.5 % (1.0-6.0); HEMATOCRIT 42.5 % (36-46); HEMOGLOBIN 13.6 g/dL (12.0-16.0); LYMPHOCYTES # (AUTO) 2.5 K/uL (1.0-4.8); LYMPHOCYTES % (AUTO) 28.9 % (22.0-44.0); MEAN CORPUSCULAR HGB CONC 31.9 G/dL (31.0-37.0); MEAN CORPUSCULAR VOLUME 97 fL (80-100); MONOCYTES # (AUTO) 0.7 K/uL (0.1-1.0); MONOCYTES % (AUTO) 8.1 % (2.0-9.0); NEUTROPHILS # (AUTO) 5.2 K/uL (1.8-7.7); NEUTROPHILS % (AUTO) 59.3 % (40.0-70.0); RED BLOOD CELL COUNT(AUTO) 4.38 MIL/uL (4.00-5.20); RED CELL DISTRIBUTION WIDTH 14.2 % (11.5-14.5)
[2023-02-01 13:45] LABS: HEMOGLOBIN A1C 6.4 % (3.8-5.6)
[2023-02-01 13:48] LABS: CALCIUM, TOTAL 9.9 mg/dL (8.8-10.5); CHOL/HDL RATIO 2.3 (3.9-5.7); CREATININE 1.14 mg/dL (0.60-1.30); PHOSPHORUS 2.8 mg/dL (2.5-4.9); POTASSIUM 4.1 mmol/L (3.5-5.1)
[2023-02-01 13:50] LABS: APPEARANCE,URINE CLEAR (CLEAR); BILIRUBIN,URINE NEGATIVE (NEGATIVE); GLUCOSE, URINE (UA) NEGATIVE (NEGATIVE); KETONES,URINE NEGATIVE (NEGATIVE); LEUKOCYTE ESTERASE ,URINE NEGATIVE (NEGATIVE); NITRATE,URINE NEGATIVE (NEGATIVE); OCCULT BLOOD,URINE NEGATIVE (NEGATIVE); PH,URINE 5.5 (5.0-8.0); PROTEIN,URINE TRACE mg/dL (NEGATIVE); SPECIFIC GRAVITIY, URINE 1.019 (1.003-1.030); UROBILINOGEN,URINE <=1.0 mg/dL (<=1.0)
[2023-02-01 13:53] LABS: CREATININE,URINE RANDOM 123.4 mg/dL (30.0-125.0); PROTEIN,URINE RANDOM 25 mg/dL (0-11.9)
[2023-02-01 14:02] LABS: PLATELET COUNT (AUTO) 202 K/uL (150-450)
[2023-02-01 14:49] LABS: ERYTHROCYTE SEDIMENTATION RATE 42 MM/HR (0-20)
== END | disposition home or self-care (01) ==
LOC: LABMN 12:45
PROVIDERS: ATTEND Hospitalist
DX: I12.9 Hypertensive chronic kidney disease with stage 1 through stage 4 chronic kidney disease, or unspecified chronic kidney disease (principal); N18.32 Chronic kidney disease, stage 3b; M05.20 Rheumatoid vasculitis with rheumatoid arthritis of unspecified site; R73.03 Prediabetes; D64.9 Anemia, unspecified
CPT/HCPCS: 80061; 80069; 82306; 82570; 83036; 83970; 84156; 85025; 85651